=== PATIENT | male | born 1945 | race Caucasian/White ===

== ENCOUNTER → 2016-11-21 | Outpatient (CLI) | payer OTHER ==
[~2016-11-21] MED LIST: AMLO10TA2 PO; ATEN100T PO; ATOR20TA58 PO; GADOBUTROL 10 MMOL/10 ML VIAL IV ONE; LEVE500T6 PO; LISI2.5T PO; TAMS0.4C2 PO; ZOST1940 SQ
--- NOTE | 2016-11-21 14:44 | RAD ---
MR of the abdomen with and without contrast, 11/21/2016: History: Hepatic lesion Imaging was performed in axial and coronal planes utilizing a variety of imaging sequences including T2 weighted, fat suppressed T2 weighted and opposed phase gradient echo sequences. Dynamic fat-suppressed T1-weighted images were also obtained following IV injection of 10 cc of the Gadavist contrast agent. There is a 3.6 cm lesion in the anterior aspect of the left lobe of the liver. It demonstrates heterogeneously increased signal on the T2-weighted sequence and decreased signal relative to liver on the T1-weighted sequence. There is prompt heterogeneous postcontrast enhancement within this lesion. The pattern does not suggest a hemangioma. There appears to be a thin enhancing capsule There is an 11 mm nonenhancing lesion in the anterior aspect of the left lobe of the liver demonstrating cystic MR characteristics. Gallstones are evident in the gallbladder. No biliary ductal dilatation is seen. The liver demonstrates mild generalized signal dropout on the opposed phase gradient echo sequence suggesting some degree of fatty change. There is a 12 mm lesion in the pancreatic tail which demonstrates increased signal on T2-weighted sequences without definite postcontrast enhancement. This has appearance of a small cyst or IPMN (intraductal papillary mucinous neoplasm). There is a 2 cm rounded lesion in the anterior aspect of the spleen. It demonstrates increased signal on the T2-weighted sequence and does not enhance. This is probably a cyst. Several tiny subcentimeter lesions in both kidneys demonstrate signal characteristics suggesting simple cysts. There is a 13 mm lesion in the lateral aspect of the right kidney which is probably a cyst. There is a 2.9 cm nodule in the anterior aspect of the lower pole of the left kidney which demonstrates increased signal on the T2-weighted sequences. This area of the kidney was not included on the majority of the postcontrast sequences. On one delayed coronal postcontrast sequence it does not appear to enhance. This is probably an additional cyst. IMPRESSION: 1. Hepatic, splenic and bilateral renal cysts. 2. Small cystic lesion in the pancreatic tail raising the possibility of a cystic pancreatic neoplasm such as a side branch IPMN. CT or MR surveillance is suggested. 3. Enhancing mass in the left lobe of the liver raising the possibility of neoplasm such as hepatocellular carcinoma, adenoma or a hepatic metastasis. Correlation with previous imaging if available is suggested. CT-guided biopsy may be indicated. 4. Cholelithiasis. 5. Hepatic steatosis.
== END | disposition home or self-care (01) ==
LOC: MRI 08:33
PROVIDERS: ATTEND Internal Medicine
DX: R93.8 Abnormal findings on diagnostic imaging of other specified body structures (principal); N28.1 Cyst of kidney, acquired; K80.20 Calculus of gallbladder without cholecystitis without obstruction; K76.0 Fatty (change of) liver, not elsewhere classified
CPT/HCPCS: 74183; A9585